=== PATIENT | female | born 1990 | race African-American/Black ===

== ENCOUNTER 2017-09-18 21:05 | Emergency (ER) | payer OTHER ==
[2017-09-18 21:11] VITALS: BP 137/82; PULSE 60; TEMP 98.4; BMI 19.8
--- NOTE | 2017-09-18 21:45 | PDOC ---
History of Present Illness - General Chief Complaint: Sore Throat Stated Complaint: COLD SYMPTOMS Time Seen by Provider: 09/18/17 21:28 History Source: Patient Exam Limitations: No Limitations - History of Present Illness Initial Comments: 09/18/17 21:44 27 yr female with sore throat and loss of voice for 1 week. no fever no chills. Past History - Past Medical History Allergies/Adverse Reactions: Allergies Allergy/AdvReac Type Severity Reaction Status Date / Time No Known Allergies Allergy Verified 09/18/17 21:11 Home Medications: Ambulatory Orders NK [No Known Home Medication] 09/18/17 Asthma: Yes - Suicide/Smoking/Psychosocial Hx Smoking Status: No Smoking History: Never smoked Have you smoked in the past 12 months: No Number of Cigarettes Smoked Daily: 1 Information on smoking cessation initiated: No Hx Alcohol Use: No Drug/Substance Use Hx: No Substance Use Type: None Review of Systems - Review of Systems Able to Perform ROS?: Yes Is the patient limited Nepali proficient: No Constitutional: No: Symptoms Reported HEENTM: Yes: Symptoms Reported Respiratory: No: Symptoms reported Cardiac (ROS): No: Symptoms Reported ABD/GI: No: Symptoms Reported : No: Symptoms Reported Musculoskeletal: No: Symptoms Reported Integumentary: No: Symptoms Reported *Physical Exam - Vital Signs Last Vital Signs Temp Pulse Resp BP Pulse Ox 98.4 F 60 16 137/82 100 09/18/17 21:09 09/18/17 21:09 09/18/17 21:09 09/18/17 21:09 09/18/17 21:09 - Physical Exam General Appearance: Yes: Nourished, Appropriately Dressed HEENT: positive: EOMI, EVA, TMs Normal, Pharyngeal Erythema Neck: positive: Supple. negative: Tender Respiratory/Chest: positive: Lungs Clear, Normal Breath Sounds Cardiovascular: positive: Regular Rhythm, Regular Rate Gastrointestinal/Abdominal: positive: Normal Bowel Sounds, Soft Musculoskeletal: positive: Normal Inspection Extremity: positive: Normal Capillary Refill, Normal Inspection, Normal Range of Motion Integumentary: positive: Normal Color, Dry, Warm Neurologic: positive: english language learner tutor II-XII NML intact, Fully Oriented, Alert, Normal Mood/ Affect Medical Decision Making - Medical Decision Making 09/18/17 21:45 cc: sore throat hoarse voice one week no fever no chills no meds taken at home will check for strep *DC/Admit/Observation/Transfer Diagnosis at time of Disposition: Pharyngitis Qualifiers: Pharyngitis/tonsillitis etiology: unspecified etiology Qualified Code(s): J02.9 - Acute pharyngitis, unspecified - Discharge Dispostion Disposition: HOME Condition at time of disposition: Improved - Referrals Referrals: Yvette Mejia MD [Primary Care Provider] - - Patient Instructions Additional Instructions: gargle with warm salt water 4-5 times a day sore throat lozengers as needed tea with honey and lemon take ibuprofen 600mg every 6hrs for pain as needed follow with your doctor in 3-4 days if worse - Post Discharge Activity
== END 2017-09-18 22:33 | disposition home or self-care (01) ==
LOC: JERFT 21:05
DX: J02.9 Acute pharyngitis, unspecified (principal)
CPT/HCPCS: 87070; 87430; 99281-25

== ENCOUNTER 2018-03-10 19:04 | Emergency (ER) | payer OTHER ==
[2018-03-10 19:17] VITALS: BP 110/74; PULSE 118; TEMP 101.2; BMI 19.8
[2018-03-10] MEDS ORDERED: IBUPROFEN 400 MG TABLET (FP) PO ONE ×2 (19:49→19:50)
[2018-03-10] MEDS ORDERED: DEXAMETHASONE SOD PHOSPHATE 4 MG/1 ML VIAL IM ONE ×3 (20:23)
[2018-03-10] MEDS ORDERED: PENICILLIN G BENZATHINE 1,200,000 UNIT/2 ML PFS IM ONE (20:23)
[2018-03-10] MEDS ORDERED: PENICILLIN G BENZATHINE 2,400,000 UNIT/4 ML PFS ONE (20:28)
--- NOTE | 2018-03-10 21:03 | PDOC ---
History of Present Illness - General Chief Complaint: Cold Symptoms Stated Complaint: HEADACHE/FEVER Time Seen by Provider: 03/10/18 19:40 History Source: Patient Exam Limitations: No Limitations Past History - Past Medical History Allergies/Adverse Reactions: Allergies Allergy/AdvReac Type Severity Reaction Status Date / Time No Known Allergies Allergy Verified 03/10/18 19:15 Home Medications: Ambulatory Orders NK [No Known Home Medication] 09/18/17 Asthma: Yes COPD: No - Suicide/Smoking/Psychosocial Hx Smoking Status: No Smoking History: Never smoked Have you smoked in the past 12 months: No Number of Cigarettes Smoked Daily: 1 Hx Alcohol Use: No Drug/Substance Use Hx: No Substance Use Type: None Respiratory Specific PMHX - Complaint Specific PMHX Angina: No Bronchitis: No Pneumonia: No Pulmonary Embolus: No TB (Tuberculosis): No *Physical Exam - Vital Signs Last Vital Signs Temp Pulse Resp BP Pulse Ox 101.2 F H 118 H 18 110/74 98 03/10/18 19:15 03/10/18 19:15 03/10/18 19:15 03/10/18 19:15 03/10/18 19:15 - Physical Exam General Appearance: No: Apparent Distress HEENT: positive: Normal Voice, Pharyngeal Erythema, Tonsillar Exudate, Tonsillar Erythema. negative: Muffled/Hoarse voice, Nasal Congestion, Rhinorrhea, Sinus Tenderness, TM Bulging Respiratory/Chest: positive: Lungs Clear, Normal Breath Sounds. negative: Respiratory Distress Integumentary: positive: Normal Color. negative: Rash Neurologic: positive: Alert Moderate Sedation - Procedure Monitoring Vital Signs: Procedure Monitoring Vital Signs Temperature 101.2 F H 03/10/18 19:15 Pulse Rate 118 H 03/10/18 19:15 Respiratory Rate 18 03/10/18 19:15 Blood Pressure 110/74 03/10/18 19:15 O2 Sat by Pulse Oximetry (%) 98 03/10/18 19:15 ED Treatment Course - Medications Given in the ED: ED Medications Discontinued Medications Generic Name Dose Route Start Last Admin Trade Name Freq PRN Reason Stop Dose Admin Ibuprofen 800 mg 03/10/18 19:49 03/10/18 19:51 Motrin - PO 03/10/18 19:50 800 mg ONCE ONE Administration Penicillin G Benzathine 1,200,000 unit 03/10/18 20:23 03/10/18 20:34 Bicillin L-A - IM 03/10/18 20:24 1,200,000 unit ONCE ONE Administration Medical Decision Making - Medical Decision Making 27 y/o F with hx of asthma presents with sore throat from last night along with fever, body aches, malaise. Denies cough, sneezing, rhinorrhea, nasal congestion , abd pain, n/v/d Flu negative +Rapid strep Patient treated with Decadron, Motrin and IM Penicillin Patient feeling better stable for dc 03/10/18 21:00 *DC/Admit/Observation/Transfer Diagnosis at time of Disposition: Strep pharyngitis - Discharge Dispostion Disposition: HOME Condition at time of disposition: Improved Decision to Admit order: No - Referrals Referrals: Yvette Mejia MD [Primary Care Provider] - 3 days - Patient Instructions Printed Discharge Instructions: DI for Strep Throat Additional Instructions: Thank you for choosing [facility]. It was a pleasure taking care of you. You were found to have strep throat. You may take Motrin 600 mg every 4 hours by mouth as needed for mild to moderate pain. Take Motrin with food. Do salt water gargles Lozenges and warm drinks may also help. Follow-up with PCP in 3 days. Return to the Emergency Department if your symptoms worsen or persist or have other concerning symptoms. - Post Discharge Activity
== END 2018-03-10 21:07 | disposition home or self-care (01) ==
LOC: JERFT 19:04
PROC: 3E0233Z Introduction of Anti-inflammatory into Muscle, Percutaneous Approach (ICD-10-PCS; principal; 2018-03-10)
PROC: 3E02329 Introduction of Other Anti-infective into Muscle, Percutaneous Approach (ICD-10-PCS; 2018-03-10)
DX: J02.0 Streptococcal pharyngitis (principal); B95.5 Unspecified streptococcus as the cause of diseases classified elsewhere
CPT/HCPCS: 87804; 87880; 99281-25

== ENCOUNTER 2018-03-29 18:39 | Emergency (ER) | payer OTHER ==
[2018-03-29 19:12] VITALS: BP 140/96; PULSE 86; TEMP 98.2; BMI 19.8
[2018-03-29] MEDS ORDERED: ACETAMINOPHEN 325 MG TABLET (FP) PO ONE ×2 (19:13→23:10)
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
[2018-03-29] MEDS ORDERED: DEXAMETHASONE LIQUID 0.5 MG/5 ML 240 ML BULK BOTTLE PO ONE (20:32)
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
[2018-03-29] MEDS ORDERED: DEXAMETHASONE SOD PHOSPHATE 10 MG/1 ML VIAL ONE (20:36)
[2018-03-29] MEDS ORDERED: ACETAMINOPHEN 325 MG TABLET (FP) ONE (23:40)
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
== END 2018-03-30 00:55 | disposition home or self-care (01) ==
LOC: JER 18:39 → JERFT 18:39 → JER 03-30 00:55
DX: M54.2 Cervicalgia (principal); R51 Headache; Y04.2XXA Assault by strike against or bumped into by another person, initial encounter; Y93.89 Activity, other specified; Y92.89 Other specified places as the place of occurrence of the external cause; Y99.8 Other external cause status; Y07.410 Brother, perpetrator of maltreatment and neglect
CPT/HCPCS: 70450-TC; 70490-TC; 84703; 99281-25

== ENCOUNTER 2018-10-15 15:45 | Emergency (ER) | payer OTHER | END 2018-10-15 17:20 | disposition home or self-care (01) | LOC: JERFT 15:45 ==

== ENCOUNTER 2019-05-01 19:04 | Emergency (ER) | payer OTHER ==
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
[2019-05-01 19:19] VITALS: BP 137/108; PULSE 120; TEMP 98.3; BMI 24.2
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
[2019-05-01 21:22] LABS: BASO % 0.8 % (0-2.0); EOS % 0.7 % (0-4.5); HEMOGLOBIN 13.6 GM/dL (10.7-15.3); LYMPH % 30.1 % (8-40); MCH 31.4 pg (25.7-33.7); MCHC 33.2 g/dl (32.0-36.0); MEAN CELL VOLUME 94.4 fl (80-96); MEAN PLT VOLUME 8.8 fl (7.5-11.1); MONO % 9.8 % (3.8-10.2); NEUT % 58.6 % (42.8-82.8); PLATELET COUNT 339 K/MM3 (134-434); RBC 4.34 M/mm3 (3.60-5.2); RDW 13.4 % (11.6-15.6); WHITE BLOOD COUNT 7.4 K/mm3 (4.0-10.0)
[2019-05-01 21:34] LABS: ALBUMIN 3.7 g/dl (3.4-5.0); BILIRUBIN,TOTAL 0.7 mg/dL (0.2-1); BLOOD UREA NITROGEN 14.1 mg/dL (7-18); CALCIUM 9.2 mg/dL (8.5-10.1); CREATININE 0.9 mg/dL (0.55-1.3); PHOSPHOROUS 3.2 mg/dL (2.5-4.9); POTASSIUM 3.8 mmol/L (3.5-5.1); TOT PROT 7.7 g/dl (6.4-8.2); URIC ACID 4.7 mg/dL (2.6-7.2)
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
[2019-05-03 02:06] LABS: HEP B CORE AB, TOT Negative (Negative)
== END 2019-05-01 23:43 | disposition home or self-care (01) ==
LOC: JER 19:04
DX: Z72.51 High risk heterosexual behavior (principal)
CPT/HCPCS: 36415; 80053; 82465; 82977; 83615; 84100; 84478; 84550; 84703; 85025; 86317; 86704; 86706; 86803; 87340; 87389; 87491; 87591; 99283-25